=== PATIENT | female | born 1980 | race Two or more races ===

== ENCOUNTER 2020-12-23 13:45 | Emergency (ER) | payer OTHER ==
[~2020-12-23] VITALS: Ht 167.6 cm; Wt 59.0 kg
[2020-12-23] MEDS ORDERED: XANAX XR0.5 MG (14:07)
[2020-12-23] MEDS ORDERED: KETO10TA2 PO (21:52)
[2020-12-23] MEDS ORDERED: MEDROLPACK PO (21:52)
[2020-12-23] MEDS ORDERED: AMBIEN5 MG PO (21:54)
== END 2020-12-23 22:09 | disposition home or self-care (01) ==
LOC: ER 13:45
DX: N93.8 Other specified abnormal uterine and vaginal bleeding (principal); R53.1 Weakness; D25.9 Leiomyoma of uterus, unspecified; R51.9 Headache, unspecified

== ENCOUNTER 2021-01-24 23:17 | Emergency (ER) | payer OTHER ==
[~2021-01-24] VITALS: Ht 162.6 cm; Wt 59.0 kg
[~2021-01-24 23:17] MED LIST: AMBIEN5 MG PO; KETO10TA2 PO; MEDROLPACK PO; XANAX XR0.5 MG
[2021-01-25] MEDS ORDERED: CENTANY30 GM TOP (02:14)
== END 2021-01-25 02:15 | disposition home or self-care (01) ==
LOC: ER 23:17
DX: S91.242A Puncture wound with foreign body of left great toe with damage to nail, initial encounter (principal); S00.83XA Contusion of other part of head, initial encounter; W18.09XA Striking against other object with subsequent fall, initial encounter; Y93.89 Activity, other specified; Y92.091 Bathroom in other non-institutional residence as the place of occurrence of the external cause; Y99.8 Other external cause status

== ENCOUNTER 2021-05-11 16:58 | Emergency (ER) | payer OTHER ==
[~2021-05-11] VITALS: Ht 167.6 cm; Wt 63.5 kg
[~2021-05-11 16:58] MED LIST changes: +CENTANY30 GM TOP
== END 2021-05-11 23:00 | disposition home or self-care (01) ==
LOC: ER 16:58
DX: J02.0 Streptococcal pharyngitis (principal); R13.10 Dysphagia, unspecified; R53.81 Other malaise